=== PATIENT | male | born 1995 ===

== ENCOUNTER 2021-05-20 07:21 | Outpatient (REF) | payer OTHER, SELFPAY | END 2021-05-20 07:22 | disposition home or self-care (01) | LOC: HO.HOSX 07:21 | PROVIDERS: Visit Provider Physician Assistant | DX: Z13.89 Encounter for screening for other disorder (principal) ==

== ENCOUNTER 2021-06-24 07:52 | Outpatient (REF) | payer OTHER, SELFPAY | END 2021-06-24 07:53 | disposition home or self-care (01) | LOC: HO.HOSX 07:52 | PROVIDERS: Visit Provider Physician Assistant | DX: Z13.89 Encounter for screening for other disorder (principal) ==